=== PATIENT | male | born 1995 | race African-American/Black ===

== ENCOUNTER 2016-09-22 13:29 | Emergency (ER) | payer OTHER ==
[~2016-09-22] VITALS: Ht 172.7 cm; Wt 111.1 kg
[~2016-09-22 13:29] MED LIST: EPIPEN 2-PAK1 MG/ML IM; HYDROXYZINE50 MG PO; PREDNISONE 20MG20 MG PO
--- NOTE | 2016-09-22 14:17 | ED GENERAL ADULT ---
History of Present Illness General Chief Complaint: General Adult Stated Complaint: DIZZY,SOB Source: patient Exam Limitations: no limitations Allergies Coded Allergies: venom-wasp (FACIAL SWELLING 09/22/16) Reconcile Medications Albuterol Sulfate (Proair Hfa) 90 MCG HFA.AER.AD 2 PUF INH Q4-6 PRN PRN SOB Epinephrine (Epipen 2-Leonel) 0.3 MG/0.3 ML AUTO.INJCT 0.3 MG IM DAILY NEEDED PRN BEES (Reported) Triage Note: PT TO TRIAGE WITH C/O INTERMITTENT SOB, CHEST TIGHTNESS, DIZZINESS x1WEEK. PT DENIES ANY PAIN, DENIES N/V/D, DENIES URINARY S/S. VSS. HX OF ASTHMA. Triage Nurses Notes Reviewed? yes Onset: Gradual Duration: day(s): (10) Timing: remote history Injury Environment: home Severity: moderate Severity Numbers: 7 No Modifying Factors: none HPI: Patient is a 21-year-old male with remote history of asthma not on any daily medications presenting to the emergency department with chief complaint of intermittent shortness of breath and dizziness. Symptoms have been going on for the past 10 days progressively getting worse over the past couple days. Patient reports that he gets dizzy intermittently mostly with positional changes but it has happened randomly as well. He feels like the room is spinning when it happens. Denies palpitations. No chest pain. He does take daily Flonase to help with seasonal allergies. Denies any congestion or cough. No abdominal pain. He has report that he recently changed his diet, trainee healthier. According to mom there is a significant family history of cardiac issues, unclear exactly what type of cardiac issues but reports that his biological uncle suddenly at 26-year-old and his biological father recently at 45 years of age secondary to a cardiac issue. Patient was born with a murmur, sore live in housekeeper and he was younger and had a workup but has not seen a live in housekeeper since. Per mom he recently moved out on his own, has been in his own place for the past couple weeks. Patient feels like he gets anxious and he has "many panic attacks". He says that he is able to talk himself down. Currently not dizzy at this time. Denies shortness of breath at this time. (EM PA,LILLIAM) Vital Signs & Intake/Output Vital Signs & Intake/Output Vital Signs Date Time Temp Pulse Resp B/P B/P Pulse O2 O2 Flow FiO2 Mean Ox Delivery Rate 09/22 1447 98 Room Air 09/22 1440 97 09/22 1440 74 18 127/63 98 Room Air 09/22 1347 98.7 79 18 122/83 98 Room Air Past History Travel History Traveled to [place] past 21 day No Medical History Any Pertinent Medical History? 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 Yes (EM BEAL,LILLIAM) Review of Systems Review of Systems Constitutional: Reports: malaise. Comments Review of systems: See HPI, All other systems negative. Constitutional, no chills fever or weight loss HEENT: No visual changes no sore throat no congestion Cardiovascular: No chest pain ,palpitation , orthopnea or ankle swelling Skin, no jaundice no rashes Respiratory: No dyspnea cough sputum or hemoptysis GI: No nausea no vomiting : No dysuria No hematuria Muscle skeletal: no back pain, no neck pain, Neurologic: No numbness no confusion Psych: Positive stress and anxiety Heme/endocrine: No bruising no bleeding no polyuria or polydipsia Immunology: No splenectomy or history of AIDS (LILLIAM PHAN) Physical Exam Physical Exam General Appearance: well developed/nourished, no apparent distress, alert, awake , comfortable Comments: Well-developed well-nourished person in no acute distress HEENT: Normal EENT exam, extraocular motion intact, small amount of horizontal nystagmus. Pupils equally round and reactive to light and accommodation. Nose is atraumatic. External auditory canal and Tympanic membranes clear. Pharynx normal. No swelling or edema. Neck: Supple, no lymphadenopathy, normal range of motion without pain or tenderness Back: Nontender, no CVA tenderness. Full range of motion Cardiovascular: Regular rate and rhythms no murmurs rubs or gallops, normal JVP Respiratory: Chest nontender. No respiratory distress.breath sounds slightly diminished to auscultation bilaterally Extremity: No edema, no calf tenderness to palpation, normal and equal pulses. Muscular strength is 5 out of 5 in upper and lower extremities. Explosive Ordnance Specialist strength is equal and symmetric bilaterally. Neuro: Alert oriented x3, motor sensory normal, cranial nerves II through XII grossly intact. Cerebellar testing is unremarkable. Able to perform rapid alternating hand movements and finger to nose testing without difficulty. Skin: No appreciable rash on exposed skin, skin is warm and dry. Psych: Mood and affect is normal, memory and judgment is normal. Core Measures ACS in differential dx? Yes CVA/TIA Diagnosis: No Severe Sepsis Present: No Septic Shock Present: No (EM BEAL,LILLIAM) Progress Differential Diagnoses I considered the following diagnoses in my evaluation of the patient: Generalized anxiety disorder, pulmonary embolism, ACS, cardiac arrhythmia, thyroid dysfunction, dehydration, orthostatic hypotension, electrolyte abnormality, cardiomyopathy Diagnostic Imaging: Viewed by Me: CT Scan. Discussed w/RAD: CT Scan. Radiology Impression: PATIENT: MARITZA RODAS PRESENT AGE: 21 PATIENT ACCOUNT NO: [id number] : 96 LOCATION: [facility] ORDERING PHYSICIAN: LILLIAM BEAL SERVICE DATE: 09/22/16 EXAM TYPE: RAD - XRY-CHEST XRAY, PA AND LATERAL EXAMINATION: XR CHEST CLINICAL INFORMATION: Shortness of breath, dizzy. Evaluate for cardiomegaly. COMPARISON: Chest 12/07/2010. TECHNIQUE: PA and lateral views of the chest are obtained. FINDINGS: The heart is normal in size. There is no congestion or focal consolidation. The bony thorax is unremarkable. IMPRESSION: Normal chest. DICTATED BY: SABINE ADLER MD DATE/TIME DICTATED:09/22/161443 CHILD CARE NURSE:WYATT DATE/TIME TRANSCRIBED:09/22/161443 CONFIDENTIAL, DO NOT COPY WITHOUT APPROPRIATE AUTHORIZATION. <Electronically signed in Other Vendor System> SIGNED BY: SABINE ADLER MD 09/22/161448 Initial ED EKG: SINUS ARRHYTHMIA AT 74 BPM, INFERIOR q WAVES Comments: 09/22/2016 3:15:39 PM patient is afebrile, vitals within normal range. We will perform orthostatics to check for orthostatic hypotension. EKG will be performed. IV fluids will be initiated secondary to slight decreased by mouth intake over the past couple days. 09/22/2016 3:46:07 PM EKG shows sinus arrhythmia with inferior Q waves. No previous to compare. Patient complaining about any palpitations or chest pain. No auscultated murmur at this time. 09/22/2016 4:14:[address] Tang, cardiology. Recommending patient needs outpatient echocardiogram performed. Patient given Dr. Tang's contact information as well as [facility] contact information. Also given prescription for albuterol inhaler as patient does report relief after breathing treatment. Mom was informed of all lab work resulted as well. All questions answered. (EM BEAL,LILLIAM) Plan of Care: Orders Procedure Date/time Status AEROSOL (GEN) 09/22 1443 Complete MISTAKE 09/22 1417 Active Telemetry/Bowling Ball Weigher And Packer 09/22 1417 Active TROPONIN LEVEL 09/22 1417 Complete COMPREHENSIVE METABOLIC PANEL 09/22 1417 Complete CBC WITHOUT DIFFERENTIAL 09/22 1417 Complete EKG 09/22 1417 Active Current Medications Sig/Cecilia Start time Last Medication Dose Stop Time Status Admin Sodium Chloride 1,000 ML BOLUS ONE 09/22 1430 AC 09/22 (Normal Saline 0.9%) 09/22 1629 1440 Laboratory Tests 09/22/16 1434: Anion Gap 12, Estimated GFR > 60, BUN/Creatinine Ratio 20.0, Glucose 94, Calcium 9.9, Total Bilirubin 0.4, AST 38, ALT 54, Alkaline Phosphatase 72, Troponin I < 0.01, Total Protein 8.3 H, Albumin 5.0, Globulin 3.3, Albumin/Globulin Ratio 1.5, CBC w Diff NO MAN DIFF REQ, RBC 4.85, MCV 89.3, MCH 30.6, RDW 14.0, MPV 8.2 , Gran % 57.8, Lymphocytes % 32.0, Monocytes % 7.1, Eosinophils % 2.4, Basophils % 0.7, Absolute Granulocytes 2.7, Absolute Lymphocytes 1.5, Absolute Monocytes 0.3, Absolute Eosinophils 0.1, Absolute Basophils 0, PUBS MCHC 34.2 Departure Departure Time of Disposition: 1611 Disposition: HOME OR SELF CARE Condition: Stable Clinical Impression Primary Impression: Dizziness Secondary Impressions: Cardiac arrhythmia Qualifiers: Arrhythmia type: unspecified cardiac arrhythmia Qualified Code: I49.9 - Cardiac arrhythmia, unspecified Shortness of breath Referrals: PATIENT HAS NO PRIMARY CARE DR (PCP/Family) MARYAM GALLARDO,MARIZOL Herron Additional Instructions: Follow-up with Dr. Tang, cardiology for further evaluation of sinus arrhythmia and echocardiogram. He can also follow-up with [facility] if you need a primary care physician. Return for worsening symptoms or concerns. Stay hydrated. Use albuterol inhaler as directed to help with asthma symptoms. Departure Forms: Customer Survey General Discharge Information Prescriptions: Current Visit Scripts Albuterol Sulfate (Proair Hfa) 2 PUF INH Q4-6 PRN PRN SOB #1 INHAL (LILLIAM PHAN) PA/BUSINESS CONTINUITY STRATEGY DIRECTOR Co-Sign Statement Statement: ED Attending supervision documentation- [] I saw and evaluated the patient. I have also reviewed all the pertinent lab results and diagnostic results. I agree with the findings and the plan of care as documented in the PA's/BUSINESS CONTINUITY STRATEGY DIRECTOR's documentation. [x] I have reviewed the ED Record and agree with the PA's/BUSINESS CONTINUITY STRATEGY DIRECTOR's documentation. [] Additions or exceptions (if any) to the PAs/BUSINESS CONTINUITY STRATEGY DIRECTOR's note and plan are summarized below: [] (TANGELA GALLARDO,JAYLEN) Critical Care Note Critical Care Note Critical Care Time: non-applicable (LILLIAM PHAN)
[2016-09-22] MEDS ORDERED: EPIPEN 2-P0.3 MG/0.3 IM (14:20)
--- NOTE | 2016-09-22 14:49 | RADIOLOGY REPORT ---
EXAMINATION: XR CHEST CLINICAL INFORMATION: Shortness of breath, dizzy. Evaluate for cardiomegaly. COMPARISON: Chest 12/07/2010. TECHNIQUE: PA and lateral views of the chest are obtained. FINDINGS: The heart is normal in size. There is no congestion or focal consolidation. The bony thorax is unremarkable. IMPRESSION: Normal chest.
[2016-09-22 14:52] LABS: ABSOLUTE BASOPHIL COUNT 0 /CUMM (0.0-0.2); ABSOLUTE EOSINOPHIL COUNT 0.1 /CUMM (0.0-0.7); ABSOLUTE GRANULOCYTE CT 2.7 /CUMM (1.4-6.5); ABSOLUTE LYMPH COUNT 1.5 /CUMM (1.2-3.4); ABSOLUTE MONOCYTE COUNT 0.3 /CUMM (0.10-0.60); BASOPHIL % 0.7 % (0.0-2.0); EOSINOPHIL % 2.4 % (0-5); GRANULOCYTE % 57.8 % (42.2-75.2); HEMATOCRIT 43.3 % (42-52); MEAN CORPUSCULAR HGB 30.6 PG (27.0-31.0); MEAN CORPUSCULAR HGB CONC 34.2 G/DL (33.0-37.0); MEAN CORPUSCULAR VOLUME 89.3 FL (80.0-94.0); MEAN PLATELET VOLUME 8.2 FL (7.4-10.4); PLATELET COUNT 242 /CUMM (130-400); RED BLOOD CELL CT 4.85 /CUMM (4.70-6.10); WHITE BLOOD CELL COUNT 4.6 /CUMM (4.8-10.8)
[2016-09-22] MEDS ORDERED: PROAIR HFA8.5 GM INH (16:14)
[2016-09-22 16:20] VITALS: BP 131/61
== END 2016-09-22 16:27 ==
LOC: ERH 13:29
PROVIDERS: Physician Assistant
DX: I49.9 Cardiac arrhythmia, unspecified (principal); R07.89 Other chest pain; R42 Dizziness and giddiness
CPT/HCPCS: 1263; 93005; 93010

== ENCOUNTER 2016-09-24 11:52 | Emergency (ER) | payer OTHER ==
[~2016-09-24] VITALS: Ht 172.7 cm; Wt 111.1 kg
[~2016-09-24 11:52] MED LIST changes: +EPIPEN 2-P0.3 MG/0.3 IM; +PROAIR HFA8.5 GM INH
[2016-09-24 12:23] LABS: ABSOLUTE BASOPHIL COUNT 0 /CUMM (0.0-0.2); ABSOLUTE EOSINOPHIL COUNT 0.1 /CUMM (0.0-0.7); ABSOLUTE GRANULOCYTE CT 1.8 /CUMM (1.4-6.5); ABSOLUTE LYMPH COUNT 1.4 /CUMM (1.2-3.4); ABSOLUTE MONOCYTE COUNT 0.3 /CUMM (0.10-0.60); BASOPHIL % 0.9 % (0.0-2.0); EOSINOPHIL % 3.9 % (0-5); GRANULOCYTE % 49.2 % (42.2-75.2); HEMATOCRIT 43.6 % (42-52); MEAN CORPUSCULAR HGB 30.3 PG (27.0-31.0); MEAN CORPUSCULAR HGB CONC 33.8 G/DL (33.0-37.0); MEAN CORPUSCULAR VOLUME 89.5 FL (80.0-94.0); MEAN PLATELET VOLUME 8.1 FL (7.4-10.4); PLATELET COUNT 228 /CUMM (130-400); RBC DISTRIBUTION WIDTH 13.8 % (11.5-14.5); RED BLOOD CELL CT 4.87 /CUMM (4.70-6.10); WHITE BLOOD CELL COUNT 3.7 /CUMM (4.8-10.8)
--- NOTE | 2016-09-24 12:58 | ED CARDIAC/CP/PALPITATIONS ---
History of Present Illness General Chief Complaint: General Adult Stated Complaint: PT IS HAVING CHEST PAIN TINGLING ON THE LEFT SIDE Source: patient Exam Limitations: no limitations Vital Signs & Intake/Output Vital Signs & Intake/Output Vital Signs Date Time Temp Pulse Resp B/P B/P Pulse O2 O2 Flow FiO2 Mean Ox Delivery Rate 09/24 1206 97.1 65 18 153/77 98 Room Air Allergies Coded Allergies: venom-wasp (FACIAL SWELLING 09/22/16) Reconcile Medications Albuterol Sulfate (Proair Hfa) 90 MCG HFA.AER.AD 2 PUF INH Q4-6 PRN PRN SOB Epinephrine (Epipen 2-Leonel) 0.3 MG/0.3 ML AUTO.INJCT 0.3 MG IM DAILY NEEDED PRN BEES (Reported) Triage Note: PT STATES THAT HE WAS SEEN HERE ON TUESDAY DUE TO HIS HEART FELT LIKE IT WAS RACING AND HAD A WARM FEELING , WAS DISCHARGED AND SUPOSSED TO FOLLOW UP WITH CARDIOLOGY BUT HAS NOT HAD CHANCE TO CALL. PT STATES THAT YESTERDAY AM HE HAD 2 EPISODES OF THE SAME AND AGAING THIS AM. DENIES AT THIS TIME. Triage Nurses Notes Reviewed? yes Onset: Abrupt Duration: day(s): (FEW), waxing and waning Timing: multiple episodes today Location: central Radiation: no radiation Activities at Onset: emotional stress HPI: 21 year old male presents to the ER with tingling feelings to the left side of his chest and feeling lightheaded like he might pass out. He admits to being under a lot of stress lateley with his job and new apartment He was seen here a few days ago and had an evalution. Case was discussed with Dr. EVELYN Tang for outpatient echocardiogram evaaluation. His mother states he hasn't called for an appointment yet. Patient states that his biological family has some form of heart disease of which he is not sure. No current chest pain or shortness of breath. Past History Travel History Traveled to [place] past 21 day No Medical History Any Pertinent Medical History? 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 Yes Review of Systems Review of Systems Constitutional: Reports: weakness. Denies: chills, fever. EENTM: Reports: no symptoms. Respiratory: Denies: cough, short of breath, sputum production, stridor. Cardiovascular: Reports: chest pain. Denies: edema, palpitations, peripheral edema. GI: Denies: abdominal pain. Genitourinary: Reports: no symptoms. Musculoskeletal: Reports: no symptoms. Skin: Reports: no symptoms. Neurological/Psychological: Reports: anxiety, emotional problems. Hematologic/Endocrine: Denies: bruising, bleeding, polyuria, polydipsia. Immunologic/Allergic: Denies: splenectomy. All Other Systems: Reviewed and Negative Physical Exam Physical Exam General Appearance: well developed/nourished, alert, awake Head: atraumatic, normal appearance Eyes: Bilateral: normal appearance, PERRL, EOMI. Ears, Nose, Throat: normal pharynx, normal ENT inspection, hearing grossly normal Neck: normal inspection, supple, full range of motion Respiratory: normal breath sounds, chest non-tender, no respiratory distress Cardiovascular: regular rate/rhythm Peripheral Pulses: 2+ radial (R), 2+ radial (L) Gastrointestinal: normal bowel sounds, soft, non-tender Extremities: normal inspection, normal capillary refill, normal range of motion, no edema Neurologic/Psych: no motor/sensory deficits, awake, alert, oriented x 3 Skin: intact, normal color, warm/dry Core Measures ACS in differential dx? No Severe Sepsis Present: No Septic Shock Present: No Progress Differential Diagnosis: AMI, atrial fibrillation, myocarditis, pericarditis, V- fib/V-Tach, WPW syndrome, SVT, IHSS, Plan of Care: Orders Procedure Date/time Status MISTAKE 09/24 1343 Active Add-on Test (ER Only) 09/24 1342 Active D-DIMER 09/24 1213 Complete TROPONIN LEVEL 09/24 1209 Complete COMPREHENSIVE METABOLIC PANEL 09/24 1209 Complete CBC WITHOUT DIFFERENTIAL 09/24 1209 Complete EKG 09/24 1202 Active Laboratory Tests 09/24/16 1213: Anion Gap 11, Estimated GFR > 60, BUN/Creatinine Ratio 20.0, Glucose 88, Calcium 9.8, Total Bilirubin 0.5, AST 27, ALT 51, Alkaline Phosphatase 65, Troponin I < 0.01, Total Protein 7.6, Albumin 4.6, Globulin 3.0, Albumin/Globulin Ratio 1.5, D-Dimer < 200, CBC w Diff NO MAN DIFF REQ, RBC 4.87, MCV 89.5, MCH 30.3, RDW 13.8, MPV 8.1, Gran % 49.2, Lymphocytes % 38.0, Monocytes % 8.0, Eosinophils % 3.9, Basophils % 0.9, Absolute Granulocytes 1.8, Absolute Lymphocytes 1.4, Absolute Monocytes 0.3, Absolute Eosinophils 0.1, Absolute Basophils 0, PUBS MCHC 33.8 EKG, ORTHOSTATICS, LABS ORDERED. NO ACUTE CHANGE IN EKG. DISCUSSED AT LENGTH WITH MOTHER AND PATIENT. MOTHER WHO IS AN ER NURSE ALSO FEELS THE PATIENT IS UNDER A LOT OF STRESS AND MAY HAVE BEEN ANXIOUS AND PANICKED. HOWEVER SHE WILL MAKE SURE HE FOLLOWS UP FOR OUTPATIENT ECHO. (TANGELA GALLARDO,JAYLEN) Initial ED EKG: NSR, abnormal Q waves Departure Departure Time of Disposition: 1423 Disposition: HOME OR SELF CARE Condition: Stable Clinical Impression Primary Impression: Palpitations Referrals: PATIENT HAS NO PRIMARY CARE DR (PCP/Family) MARYAM GALLARDO,MARIZOL Herron Additional Instructions: Follow up with the product planner listed as previously given to you on your last discharge paper. Please return to the ER for worsening symptoms. Departure Forms: Customer Survey General Discharge Information Critical Care Note Critical Care Note Critical Care Time: non-applicable
[2016-09-24 14:28] VITALS: BP 140/80
== END 2016-09-24 14:57 ==
LOC: ERH 11:52
PROVIDERS: Emergency Medicine
DX: R00.2 Palpitations (principal)
CPT/HCPCS: 93005; 93010